=== PATIENT | female | born 1995 | race Caucasian/White ===

== ENCOUNTER 2017-01-10 04:47 | Emergency (ER) | payer OTHER ==
[~2017-01-10] VITALS: Ht 167.6 cm; Wt 95.3 kg
[2017-01-10 05:03] VITALS: BP 134/88
--- NOTE | 2017-01-10 05:11 | NUR ---
Joanne sun in [facility] - 01/10/17 at 0512 by MEDAYAD BIB WHEELCHAIR TO ER BED 3
--- NOTE | 2017-01-10 05:12 | NUR ---
BIB WHEELCHAIR TO ER BED 4
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
--- NOTE | 2017-01-10 05:13 | NUR ---
Patient being evaluated by physician at bedside.
[2017-01-10] MEDS ORDERED: DIAZEPAM 5 MG TAB PO ONE (05:20)
[2017-01-10] MEDS ORDERED: KETOROLAC 30 MG/ML VIAL IM ONE (05:20)
--- NOTE | 2017-01-10 05:30 | NUR ---
PATIENT HAVING X RAY DONE AT BEDSIDE.
[2017-01-10 06:15] VITALS: BP 124/82
--- NOTE | 2017-01-10 06:15 | NUR ---
Patient discharged with v/s stable. Written and verbal after care instructions given and explained. Patient alert, oriented and verbalized understanding of instructions. Ambulatory with steady gait ON CRUTCHES. All questions addressed prior to discharge. ID band removed. Patient advised to follow up with PMD. Rx of NAPROSYN AND ACETAMINOPHEN given. Patient educated on indication of medication including possible reaction and side effects. Opportunity to ask questions provided and answered.
== END 2017-01-10 06:05 | disposition home or self-care (01) ==
LOC: MED 04:47
DX: S93.402A Sprain of unspecified ligament of left ankle, initial encounter (principal); V89.2XXA Person injured in unspecified motor-vehicle accident, traffic, initial encounter; Y93.89 Activity, other specified; Y92.411 Interstate highway as the place of occurrence of the external cause; Y99.8 Other external cause status
CPT/HCPCS: 71010; 73600; 81025; 96372; 99284; J1885; Q0092